=== PATIENT | male | born 1950 | race Caucasian/White ===

== ENCOUNTER → 2020-11-13 | Outpatient (CLI) | payer MEDICARE ==
[~2020-11-13] MED LIST: CARAFATE; CLARITIN10 MG PO; FLONASE 0.05%50 MCG NS; OXYTROL; PREVACID15 MG PO; [UNRECOGNIZED DRUG - OTHER]
== END ==
LOC: M.RAD 14:43
PROVIDERS: ATTEND Registered Nurse Diabetes Educator
DX: R06.00 Dyspnea, unspecified (principal)

== ENCOUNTER → 2020-12-05 | Outpatient (CLI) | payer MEDICARE ==
--- NOTE | 2020-12-05 11:09 | 2DMMODE ---
[place] [address] 2 D/M-MODE ECHOCARDIOGRAM Name: TAJ BROWNLEE Room: [facility]#: [id number] Admission: 12/05/20 Attend Phys: JERMAINE Herrera Discharge: Date of : 54 Date of Service: 12/05/20 1108 Report #: [id number] THIS REPORT FOR: cc: Neelam Hernandez Tammy RNP Blick, David R. MD LOCATED WITHIN [facility] ~ APPROVED REPORT Study performed: 12/05/2020 09:23:19 EXAM: Comprehensive 2D, Doppler, and color-flow Echocardiogram Patient Location: Observation BSA: 2.01 HR: 92 bpm BP: 134/84 mmHg Rhythm: NSR Other Information Study Quality: Excellent Indications Dyspnea 2D Dimensions IVSd: 9.44 (7-11mm) LVOT Diam: 21.47 (18-24mm) LVDd: 43.06 mm PWd: 8.37 (7-11mm) Ascending Ao: 38.74 (22-36mm) LVDs: 25.02 (25-40mm) Aortic Root: 40.79 mm Volumes Left Atrial Volume (Systole) LA ESV Index: 20.20 mL/m2 Aortic Valve AoV Peak Gama.: 0.83 m/s AO Peak Gr.: 2.76 mmHg LVOT Max P.46 mmHg AO Mean Gr.: 1.48 mmHg LVOT Mean P.18 mmHg LVOT Max V: 0.78 m/s AO V2 VTI: 14.26 cm LVOT Mean V: 0.50 m/s ROHITH (VTI): 3.51 cm2 LVOT V1 VTI: 13.83 [place] [address] 2 D/M-MODE ECHOCARDIOGRAM Name: TAJ BROWNLEE Room: [facility]#: [id number] Admission: 12/05/20 Attend Phys: JERMAINE Herrera Discharge: Date of : 54 Date of Service: 12/05/20 1108 Report #: [id number] E/A Ratio: 0.88 MV Decel. Time: 213.41 ms MV E Max Gama.: 0.49 m/s MV PHT: 61.89 ms MVA (PHT): 3.55 cm2 TDI E/Lateral E': 5.44 E/Medial E': 6.13 Medial E' Gama.: 0.08 m/s Lateral E' Gama.: 0.09 m/s Pulmonary Valve PV Peak Gama.: 0.89 m/s PV Peak Gr.: 3.16 mmHg Tricuspid Valve RAP Estimate: 5.00 mmHg TR Peak Gr.: 24.38 mmHg RVSP: 29.00 mmHg PA Pressure: 29.00 mmHg Left Ventricle The left ventricle is normal size. There is normal LV segmental wall motion. There is normal left ventricular wall thickness. Left ventricular systolic function is normal. The left ventricular ejection fraction is within the normal range. LVEF is 55-60%. Grade I - abnormal relaxation pattern. Right Ventricle Right ventricle is dilated. The right ventricular systolic function is normal. Atria The left atrium size is normal. Right atrium is dilated. Aortic Valve The aortic valve is normal in structure. No aortic regurgitation is present. There is no aortic valvular stenosis. Mitral Valve The mitral valve is normal in structure. There is no mitral valve regurgitation noted. No evidence of mitral valve stenosis. Tricuspid Valve The tricuspid valve is normal in structure. Trace tricuspid regurgitation. No pulmonary hypertension[place] [address] 2 D/M-MODE ECHOCARDIOGRAM Name: TAJ BROWNLEE Room: [facility]#: [id number] Admission: 12/05/20 Attend Phys: JERMAINE Herrera Discharge: Date of : 54 Date of Service: 12/05/20 1108 Report #: [id number] The pulmonary valve is normal in structure. Mild pulmonic regurgitation. Great Vessels Aortic root is mildly dilated. IVC is normal in size and collapses >50% with inspiration. Pericardium There is no pericardial effusion. <Conclusion> LVEF is 55-60%. Right ventricle is dilated. Aortic root is mildly dilated. <ELECTRONICALLY SIGNED> By: Guy Ervin MD, FACC 12/05/20 1108 1108 1108 Guy Ervin MD, FACC /INF
--- NOTE | 2020-12-06 11:40 | CARDNUC ---
[place] [address] CARDIAC NUCLEAR IMAGING REPORT Name: TAJ BROWNLEE Room: [facility]#: [id number] Admission: 12/05/20 Attend Phys: JERMAINE Herrera Discharge: Date of : 54 Date of Service: 12/06/20 1140 Report #: [id number] THIS REPORT FOR: cc: Neelam Hernandez Tammy RNP Liston, Michael J. MD [facility] ~ APPROVED REPORT Imaging Protocol: Stress Tc-99m/Rest Tc-99m 1 day Study performed: 12/05/2020 07:30:00 Indication: Chest pain, Dyspnea Patient Location: Out-Patient Stress Tech: Faviola Baptiste Stress Nurse: Kim Roblero RN Ht: 5 ft 9 in Wt: 185 lbs BSA: 2.00 m2 BMI: 27.31 Medical History Medical History: COPD Medications: no cardiac meds Allergies: penicillin Cardiac Risk Factors: Age, FHX of CAD Exercise History: Physically active Resting Data Rest SPECT myocardial perfusion imaging was performed in supine position 30 minutes following the intravenous injection of 9.8 mCi of Tc-99m Sestamibi. Time of rest injection: 08:05 The images were gated to evaluate regional wall motion and calculate left ventricular ejection fraction. Administration Route: IV Administration Site: Right Hand Exercise Stress At peak stress, the patient was injected intravenously with 33.1mCi of Tc-99m Sestamibi. Time of stress injection: 09:40 Administration Route: IV Administration Site: Right Hand Heart Rate at time of stress injection: 156 bpm. Patient continued to exercise for 1 minute([place] [address] CARDIAC NUCLEAR IMAGING REPORT Name: TORRIETAJ AREVALO Robert Room: [facility]#: [id number] Admission: 12/05/20 Attend Phys: JERMAINE Herrera Discharge: Date of : 54 Date of Service: 12/06/20 1140 Report #: [id number] Gated Stress SPECT was performed 30 minutes after stress injection. The images were gated to evaluate regional wall motion and calculate left ventricular ejection fraction. Prone imaging was performed. Stress Test Details Stress Test: Exercise stress testing was performed using a Mariano protocol. HR Max Heart Rate (APMHR): 152 bpm Resting HR: 92 bpm Target HR (85% APMHR): 129 bpm Max HR Achieved: 156 bpm % of APMHR: 102 Recovery HR: 101 bpm BP Resting BP: 134/84 mmHg Max BP: 200/84 mmHg Recovery BP: 157/89 mmHg ECG Resting ECG: Sinus Rhythm Stress ECG: Sinus Tachycardia ST Change: None Arrhythmia: None Recovery ECG: Sinus Rhythm Recovery ST Change: None Recovery Arrhythmia: None Clinical Reason for Termination: Dyspnea, Fatigue Exercise duration: 7 min 00 sec Exercise capacity: 8.58 METs Functional Aerobic Impairment 103% The patient tolerated standard Mariano protocol exercise without significant cardiac symptoms. Stress ECG Conclusion Baseline twelve-lead EKG shows sinus rhythm without significant ST segment abnormality. EKGs obtained during and post exercise show sinus rhythm and sinus tachycardia with no significant ST segment changes when compared to baseline. There were no stress-induced arrhythmias. Study Quality Study: [place] [address] CARDIAC NUCLEAR IMAGING REPORT Name: TAJ BROWNLEE Robert Room: [facility]#: [id number] Admission: 12/05/20 Attend Phys: JERMAINE Herrera Discharge: Date of : 54 Date of Service: 12/06/20 1140 Report #: [id number] Artifact: Mild Study Data At rest, the left ventricular ejection fraction was 64%.. Post stress, the left ventricular ejection was 62%.. TID = 0.84. Perfusion Perfusion images obtained in the supine position at rest and post exercise stress show mild photopenia in the inferior wall that resolves completely with post-rest prone imaging consistent with diaphragmatic attenuation artifact. There were no other significant defects to suggest infarct or ischemia. Wall Motion Normal left ventricular wall motion. Nuclear Conclusion ECG Findings: negative for ischemia Clinical Findings: negative for ischemia Nuclear Findings: negative for ischemia Exercise Capacity: Limited Left Ventricular Function: normal Risk Study: low Perfusion study showed no defect to suggest infarct or ischemia. Ventricular systolic function appears normal on gated studies. This is a low risk study. <Conclusion> Baseline twelve-lead EKG shows sinus rhythm without significant ST segment abnormality. EKGs obtained during and post exercise show sinus rhythm and sinus tachycardia with no significant ST segment changes when compared to baseline. There were no stress-induced arrhythmias. <ELECTRONICALLY SIGNED> By: Jose Nicholson MD, FACC 12/06/20 1140 1140 1140 Jose Nicholson MD, FACC /INF
== END ==
LOC: M.CRD 11-14 11:08 → M.NUC 07:35
PROVIDERS: ATTEND Registered Nurse Diabetes Educator
DX: I08.8 Other rheumatic multiple valve diseases (principal); J98.01 Acute bronchospasm; R42 Dizziness and giddiness